=== PATIENT | female | born 2000 | race African-American/Black ===

== ENCOUNTER 2023-05-21 05:20 | Emergency (ER) | payer MEDICAID, OTHER ==
--- NOTE | 2023-05-21 05:22 | ED Physician Documentation ---
History of Present Illness - Stated complaint Stated Complaint: FACE SWELLING - History obtained from History obtained from: Patient - Additonal information Additional information: HPI from patient. Patient c/o facial swelling since approximately 8 PM last night. Patient took naproxen a few hours earlier, and patient notes she had similar symptoms the last time she took naproxen. She has also had symptoms c/w allergic reaction without inciting event, including medications such as naproxen. She was evaluated for these symptoms by a specialist in [place] where she was living at the time; patient says no specific allergy was determined with subsequent blood tests showing "histamine intolerance" (per patient), for which she was provided dietary advice. She also was prescribed epi-pens but has not had to use them. Patient's previous episode of symptoms associated with taking naproxen included lightheadedness and she called 911 and was treated and released from an ED in [place]. On current presentation/HPI, patient denies lightheadedness, dyspnea, chest or throat tightness/swelling/sensation of constriction. Patient takes ceterizine QD and also took 25mg benadryl last night at approximately 9 PM. She presents at this time due to ongoing symptoms of facial swelling including perioral (lips), pruritis of face, and pruritis hives on BUE and feet. Review of Systems Cardiac: reports: Reviewed and negative Respiratory: reports: Reviewed and negative GI: reports: Reviewed and negative Skin: reports: Rash PD PAST MEDICAL HISTORY - Past Medical History Past Medical History: No - Present Medications Home Medications: Ambulatory Orders Medication Instructions Recorded Confirmed Cetirizine HCl [Allergy] 20 mg PO DAILY 05/21/23 05/21/23 predniSONE [Deltasone] 40 mg PO DAILY 4 Days #8 tablet 05/21/23 - Allergies Allergies/Adverse Reactions: Allergies Allergy/AdvReac Type Severity Reaction Status Date / Time No Known Drug Allergies Allergy Verified 05/21/23 05:30 PD ED PE NORMAL - Vitals Vital signs reviewed: Yes - General General: Alert and oriented X 3, No acute distress, Well developed/nourished - HEENT HEENT: Pharynx benign (airway widely patent; no intraoral edema nor posterior oropharyngeal edema), Other (facial swelling, most noticeable bilateral periorbital and perioral (lips). NAD) - Cardiac Cardiac: RRR, No murmur - Respiratory Respiratory: No respiratory distress, Clear bilaterally - Derm Derm: Other (few, faint hives on left FA and bilateral feet (dorsal surfaces only)) - Extremities Extremities: No edema Results - Vitals Vitals: Vital Signs - 24 hr 05/21/23 05/21/23 05/21/23 05:24 06:28 06:47 Temperature 36.0 C L 36.1 C L Heart Rate 84 85 90 Respiratory 16 23 21 Rate Blood Pressure 127/61 110/59 L 146/93 H O2 Saturation 100 99 100 Oxygen O2 Source Room air PD Medical Decision Making - ED course Complexity details: re-evaluated patient, considered differential, d/w patient ED course: Patient is given 50mg IM diphenhydramine, 60mg PO prednisone, and 0.3 mg IM epinephrine (given due to perioral/lip edema and not hypotension nor respiratory symptoms nor abnormal respiratory findings on exam). Reevaluated after 90 minutes observation in ED and remains in NAD and patient reports mild improvement in symptoms. Facial swelling does not appear noticeably different from initial exam, but, given no progression of symptoms and anticipated slower onset of the PO prednisone, reasonable to d/c at this time. Patient is offered d/c vs further ED observation and she expresses comfort with, and preference for, d/c home. Return instructions carefully reviewed with patient. She has an epi-pen in her belongings and this does not until February 2024 (thus does not need new rx). I submitted rx for 4 days of 40mg QD prednisone to patient's pharmacy of choice. Departure - Departure Disposition: 01 Home, Self Care Clinical Impression: Allergic reaction Qualifiers: Encounter type: initial encounter Qualified Code(s): T78.40XA - Allergy, unspecified, initial encounter Condition: Good Instructions: ED Allergic Reaction General Other Prescriptions: predniSONE [Deltasone] 40 mg PO DAILY 4 Days #8 tablet Comments: The prescription for prednisone (steroid) has been electronically submitted to the [facility] pharmacy in [place]. Discharge Date/Time: 05/21/23 07:07
[2023-05-21] MEDS ORDERED: EPINEPHrine 1 MG/ML AMP IM STA (05:43)
[2023-05-21] MEDS ORDERED: predniSONE 20 MG TABLET PO STA (05:43)
[2023-05-21] MEDS ORDERED: diphenhydrAMINE INJ 50 MG/ML VIAL IM STA (05:43)
[2023-05-21 06:54] VITALS: BP 146/93
== END 2023-05-21 07:07 | disposition home or self-care (01) ==
LOC: ED 05:20
DX: R22.0 Localized swelling, mass and lump, head (principal); R42 Dizziness and giddiness; T39.315A Adverse effect of propionic acid derivatives, initial encounter
CPT/HCPCS: 96372; 99283; 99284; J1200; J7512

== ENCOUNTER 2023-08-27 12:34 | Emergency (ER) | payer MEDICAID ==
[2023-08-27 12:45] VITALS: BP 126/72; O2SAT 100
[2023-08-27] MEDS ORDERED: predniSONE 20 MG TABLET PO STA (12:59)
--- NOTE | 2023-08-27 13:02 | ED Physician Documentation ---
History of Present Illness - Stated complaint Stated Complaint: LIP SWELLING/RASH - Chief complaint Chief Complaint: Allergic Rx - Additonal information Additional information: 23-year-old female presents emergency department for evaluation of generalized urticaria and lip swelling. She does take Xolair injections every month for generalized urticaria. This is the second time she has had an allergic reaction after receiving the medication which she injected last 2 days ago. Denies difficulty breathing talking or swallowing. She has taken Benadryl without relief of symptoms. Review of Systems Constitutional: denies: Fever, Chills Throat: reports: Other (Lip swelling) Cardiac: reports: Reviewed and negative Respiratory: reports: Reviewed and negative Skin: reports: Rash PD PAST MEDICAL HISTORY - Past Surgical History Past Surgical History: No - Present Medications Home Medications: Ambulatory Orders Medication Instructions Recorded Confirmed Cetirizine HCl [Allergy] 20 mg PO DAILY 05/21/23 05/21/23 predniSONE [Deltasone] 40 mg PO DAILY 4 Days #8 tablet 05/21/23 predniSONE [Deltasone] 40 mg PO DAILY 5 Days #8 tablet 08/27/23 - Allergies Allergies/Adverse Reactions: Allergies Allergy/AdvReac Type Severity Reaction Status Date / Time No Known Drug Allergies Allergy Verified 08/27/23 12:38 - Social History Does the pt smoke?: No Smoking Status: Never smoker Does the pt drink ETOH?: No Does the pt have substance abuse?: No - Immunizations Immunizations are current?: Yes - POLST Patient has POLST: No PD ED PE NORMAL - General General: Alert and oriented X 3, No acute distress, Well developed/nourished - HEENT HEENT: Atraumatic, Pharynx benign, Other (Mild swelling of the upper lip and face. No tongue or swelling of the oropharynx or below the mouth. Normal phonation normal swallow. No trismus.) - Neck Neck: Supple, no meningeal sign, No adenopathy - Cardiac Cardiac: RRR, No murmur - Respiratory Respiratory: No respiratory distress - Back Back: No CVA TTP - Derm Derm: Normal color, Warm and dry. No: No rash (Mild generalized urticaria of the arms and legs.) - Neuro Neuro: Alert and oriented X 3 Eye Opening: Spontaneous Motor: Obeys Commands Verbal: Oriented GCS Score: 15 Results - Vitals Vitals: Vital Signs - 24 hr 08/27/23 12:38 Temperature 36.8 C Heart Rate 93 Respiratory 16 Rate Blood Pressure 126/72 O2 Saturation 100 Oxygen O2 Source Room air PD Medical Decision Making - ED course Complexity details: d/w patient ED course: 23-year-old female who has a history of recurrent urticaria presents emergency department with urticaria and lip swelling. This is the second time this reaction has occurred after taking Xolair the immune logic for treatment of her hives. Seen in May for similar and resolved with steroids. Requesting the same today. No evidence of anaphylaxis on exam though she does have some mild swelling of the upper lip there is no swelling of the mouth or tongue otherwise. Clear posterior oropharynx. Given initial dose of 60 mg prednisone here in the emergency department and will be discharged with an additional 4 days of steroids. Recommended Pepcid and Benadryl at home. The usual emergent return precautions for failure symptoms resolve was discussed. Advised to follow closely with her PCP as well as the drug reps for discussion of the recurrent hives in the setting of Xolair. Departure - Departure Disposition: Home, Self Care Clinical Impression: Allergic reaction after allergen immunotherapy Condition: Stable Record reviewed to determine appropriate education?: Yes Prescriptions: predniSONE [Deltasone] 40 mg PO DAILY 5 Days #8 tablet Comments: You are seen today because you developed hives/urticaria and swelling of the lips after receiving your Xolair injection 2 days ago. We will treat you with a short course of oral steroids. Your first dose was given today in the ER. Fill the prescription for the prednisone and begin taking every day tomorrow for the next 4 days. In general you can take Benadryl 25 to 50 mg twice daily. You can also use Pepcid or famotidine 20 mg twice daily during her allergic reactions. Please continue to discuss your allergic reactions after using Xolair with your primary care providers as well as the drug reps. Return to the ER if you find you are having any worsening symptoms, difficulty talking swelling or breathing.
== END 2023-08-27 13:21 | disposition home or self-care (01) ==
LOC: ED 12:34
DX: T88.6XXA Anaphylactic reaction due to adverse effect of correct drug or medicament properly administered, initial encounter (principal)
CPT/HCPCS: 99282; 99284; J7512